=== PATIENT | female | born 2000 | race African-American/Black ===

== ENCOUNTER 2022-01-19 15:29 | Emergency (ER) | payer SELFPAY ==
[2022-01-19 15:55] VITALS: O2SAT 100
[2022-01-19] MEDS ORDERED: Zithromax 250 MG TABLET PO ONE (16:09)
[2022-01-19] MEDS ORDERED: Flagyl 500 MG PO ONE (16:10)
[2022-01-19] MEDS ORDERED: Rocephin 500 MG INJ IM ONE (16:11)
--- NOTE | 2022-01-19 16:11 | ERPHSYRPT ---
- History of Present Illness Time Seen by Provider: 01/19/22 16:02 Patient Subjective Stated Complaint: Pt c/o of small bump on palms and fingers of kayleen hands, pt also wishes to be tested for std's due to her boyfriend texting her today and stating that she needed to be tested, bumps on hands appeared last week, pt stated that she had athletes foot and had popped a blister on her foot and then later the bumps showed up on her hands but is unsure if it is related, the bumps are itchy Triage Nursing Assessment: Pt was brought to the ER by a family member, lorrie huang, denies pain, tiny bumps on hand are her skin color and are hard to see but can be felt, denies any urination problems, doesn't appear to be in any distress Physician History: 21 years old presented in the ER for STD check as patient ex-boyfriend called/texted her to be checked for it. She denies any vaginal discharge, cramping, fever or chills. Does have unprotected sexual intercourse almost 2 weeks ago. Denies any history of STDs in the past. Denies any increased urinary frequency urgency or hesitancy. She does have a athlete's foot on the left fourth lateral webspace which she is using clotrimazole for the last 3 days and is improving and she cleaned it with fingers and have some bumps on thereto. Mild itching. Allergies/Adverse Reactions: No Known Drug Allergies Allergy (Verified 01/19/22 15:55) Travel Risk - International Travel Have you traveled outside of the country in past 3 weeks: No - Coronavirus Screening Are you exhibiting any of the following symptoms?: No Close contact with a COVID-19 positive Pt in past 14-21 Days: No - Vaccine Status Have you recieved a Covid-19 vaccination: Yes [employer]: [employer] - Vaccination Dates Date of 2cond Vaccination (if applicable): 05/2021 - Review of Systems Constitutional: No Symptoms Eyes: No Symptoms Ears, Nose, & Throat: No Symptoms Respiratory: No Symptoms Cardiac: No Symptoms Abdominal/Gastrointestinal: No Symptoms Genitourinary Symptoms: No Symptoms Musculoskeletal: No Symptoms Skin: Skin Lesions Neurological: No Symptoms Psychological: No Symptoms Endocrine: No Symptoms - Past Medical History Pertinent Past Medical History: No - Past Surgical History Past Surgical History: Yes Gastrointestinal: Appendectomy Other Surgical History: rt open compound fracture of leg--3 surgeries, 2 surgeries for appendix because they left something in there - Social History Smoking Status: Never smoker Exposure to second hand smoke: No Drug Use: none Patient Lives Alone: Yes - Female History Hx Last Menstrual Period: 01/12/2022 Hx Now: No - Nursing Vital Signs Nursing Vital Signs: Initial Vital Signs Temperature 96.8 F 01/19/22 15:37 Pulse Rate 96 H 01/19/22 15:37 Blood Pressure 128/80 01/19/22 15:37 O2 Sat by Pulse Oximetry 100 01/19/22 15:37 Pain Scale Pain Intensity 0 - Physical Exam General Appearance: no apparent distress, alert Eye Exam: PERRL/EOMI Neck Exam: normal inspection, full range of motion Respiratory Exam: normal breath sounds, lungs clear Cardiovascular Exam: regular rate/rhythm, normal heart sounds Gastrointestinal/Abdomen Exam: soft, normal bowel sounds, No tenderness Extremity Exam: other (Erythema left fourth foot webspace. With bumps around/vesicles. Also have few bumps on the palmar aspect of hand. No erythema on the hand.) Neurologic Exam: alert, oriented x 3, cooperative Skin Exam: normal color SpO2 Interpretation: normal SpO2: 100 O2 Delivery: Room Air Ordered Tests: Active Orders 24 hr Category Date Time Status CULTURE,URINE Stat Lab 01/19/22 16:52 Received HCG,QUALITATIVE URINE Stat Lab 01/19/22 16:52 Completed UA W/RFX CULTURE Stat Lab 01/19/22 16:52 Results Wet Prep Stat Lab 01/19/22 16:52 Results Medication Summary Discontinued Medications Generic Name Dose Route Start Last Admin Trade Name Jaylon PRN Reason Stop Dose Admin Azithromycin 1,000 mg 01/19/22 16:09 01/19/22 16:29 Azithromycin 250 Mg Tablet PO 01/19/22 16:10 1,000 mg STAT ONE Administration Azithromycin Confirm 01/19/22 16:25 Azithromycin 250 Mg Tablet Administered 01/19/22 16:26 Dose 1,000 mg .ROUTE .STK-MED ONE Ceftriaxone Sodium 500 mg 01/19/22 16:11 01/19/22 16:31 Ceftriaxone Sodium 500 Mg Vial IM 01/19/22 16:12 500 mg STAT ONE Administration Ceftriaxone Sodium Confirm 01/19/22 16:26 Ceftriaxone Sodium 500 Mg Vial Administered 01/19/22 16:27 Dose 500 mg .ROUTE .STK-MED ONE Lidocaine HCl Confirm 01/19/22 16:26 Lidocaine Hcl 1% 20 Ml Mdv 20 Ml Ml Administered 01/19/22 16:27 Dose 1 ml .ROUTE .STK-MED ONE Metronidazole 2,000 mg 01/19/22 16:10 01/19/22 16:29 Metronidazole 500 Mg Tablet PO 01/19/22 16:11 2,000 mg STAT ONE Administration Metronidazole Confirm 01/19/22 16:26 Metronidazole 500 Mg Tablet Administered 01/19/22 16:27 Dose 2,000 mg .ROUTE .STK-MED ONE Lab/Rad Data: Laboratory Results 01/19/22 01/19/22 Range/Units 16:52 16:52 Urinalys Dipstick Clnc MAIN LAB Urine Color YELLOW (YELLOW) Urine Appearance CLEAR (CLEAR) Urine pH 6.0 (5-6) Ur Specific [place] 1.015 (1.005-1.025) POC Urine Protein Conf NEGATIVE (Negative) Urine Ketones NEGATIVE (NEGATIVE) Urine Nitrite NEGATIVE (NEGATIVE) Urine Bilirubin NEGATIVE (NEGATIVE) Urine Urobilinogen 0.2 (0-1) mg/dL Urine Leukocytes SMALL (NEGATIVE) Urine WBC (Auto) 6-10 (0-5) /HPF Urine RBC (Auto) 0-2 (0-2) /HPF U Epithel Cells (Auto) RARE (FEW) /HPF Urine Bacteria (Auto) RARE (NEGATIVE) /HPF Urine RBC NEGATIVE (0-5) Calixto/ul Urine Mucus (Auto) SLIGHT (NEGATIVE) /HPF Ur Culture Indicated? YES Urine Glucose NEGATIVE (NEGATIVE) mg/dL Urine HCG, Qual NEGATIVE (Negative) WBC (Wet Prep) Pending RBC (Wet Prep) Pending Epi Cells (Wet Prep) Pending Bacteria (Wet Prep) Pending Clue Cells (Wet Prep) Pending Trichomonas (Wet Prep) Pending Budding Yeast (Wet Prp) Pending - Progress Progress: unchanged Air Movement: good Progress Note: 01/19/22 17:05 She is given STD prophylaxis with Rocephin/Zithromax/metronidazole. Recommended continue with antifungal medication and outpatient follow-up. Does have UTI and started on Keflex. Blood Culture(s) Obtained: No Antibiotics given: Yes, No Counseled pt/family regarding: lab results, diagnosis, need for follow-up - Departure Departure Disposition: Home Clinical Impression: Exposure to STD, Athlete's foot on left, Acute UTI Condition: Stable Critical Care Time: No Referrals: DOCTOR,NO FAMILY [Primary Care Provider] - Follow up/PCP as directed ARBEN IYER MD [ACTIVE STAFF] - Follow up/PCP as directed (in 2 days for re evaluation ) Instructions: STD Prevention Additional Instructions: Follow-up with primary care/health department for reevaluation and further testing. Return to ER if having vaginal discharge, pelvic pain/cramping/fever chills etc. continue with topical anti-fungal medication Prescriptions: Cephalexin Mh 500 mg [Keflex 500 mg] 500 mg PO TID #21 cap
[2022-01-19] MEDS ORDERED: Zithromax 250 MG TABLET ONE (16:25)
[2022-01-19] MEDS ORDERED: Rocephin 500 MG INJ ONE (16:26)
[2022-01-19] MEDS ORDERED: Flagyl 500 MG ONE (16:26)
[2022-01-19] MEDS ORDERED: XYLOCAINE 1% HCL 20 ML MDV ONE (16:26)
[2022-01-19 16:58] LABS: Appearance CLEAR (CLEAR); Bilirubin NEGATIVE (NEGATIVE); Dipstick done @ ? MAIN LAB; Glucose NEGATIVE (NEGATIVE); Ketones NEGATIVE (NEGATIVE); Nitrite NEGATIVE (NEGATIVE); Protein,Urine Dip NEGATIVE (Negative); RBC NEGATIVE Ery/ul (0-5); Specific Gravity 1.015 (1.005-1.025); Urobilinogen 0.2 mg/dL (0-1)
[2022-01-19 17:02] LABS: Bacteria RARE /HPF (NEGATIVE); Epithelial Cells RARE /HPF (FEW); Mucus SLIGHT /HPF (NEGATIVE); RBC 0-2 /HPF (0-2)
[2022-01-19 17:03] LABS: Urine Cultured Indicated? YES
[2022-01-19 17:16] VITALS: BP 132/68; PULSE 86
[2022-01-19 18:43] LABS: CHLAMYDIA DNA DETECTED (NEGATIVE); GC DNA Probe DETECTED (NEGATIVE)
== END 2022-01-19 17:27 | disposition home or self-care (01) ==
LOC: ED 15:29
DX: N39.0 Urinary tract infection, site not specified (principal); B35.3 Tinea pedis; Z20.2 Contact with and (suspected) exposure to infections with a predominantly sexual mode of transmission
CPT/HCPCS: 81015; 84703; 87077; 87086; 87186; 87491; 87591; 96372; 99284; J0696; A9270-GY

== ENCOUNTER 2024-01-24 07:57 | Emergency (ER) | payer BC ==
--- NOTE | 2024-01-24 08:03 | ERPHSYRPT ---
- History of Present Illness Time Seen by Provider: 01/24/24 08:03 Historian: patient Exam Limitations: no limitations Physician History: This is an overweight 23-year-old -[place] female who has had an appendectomy past and presents to the emergency department with 2-day history of right lower quadrant abdominal pain. It is localized. It is worse this morning and she describes it as a sharp, achiness. She states she is about ready to start her menstrual period. Patient states she is sexually active. Patient has no known drug allergies and she takes no medications chronically. She denies chest pain and she denies shortness of breath. She does not have a primary care provider. She does not have nausea or vomiting or diarrhea symptoms. Timing/Duration: day(s) (2), worse Activities at Onset: none (This morning) Quality: aching, sharpness Abdominal Pain Onset Location: RLQ Pain Radiation: no radiation Severity of Pain-Max: moderate Severity of Pain-Current: moderate Modifying Factors: Improves With: nothing Associated Symptoms: denies symptoms Previous symptoms: no prior history, no recent treatment Allergies/Adverse Reactions: walnut Allergy (Mild, Verified 01/24/24 08:15) Home Medications: No Reportable Medications [No Reported Medications] 01/24/24 [History] Travel Risk - International Travel Have you traveled outside of the country in past 3 weeks: No - Emerging Infectious Disease Are you exhibiting symptoms associated with any current EIDs: No - Review of Systems Constitutional: No Symptoms Eyes: No Symptoms Ears, Nose, & Throat: No Symptoms Respiratory: No Symptoms Cardiac: No Symptoms Abdominal/Gastrointestinal: Abdominal Pain (Right lower quadrant) Genitourinary Symptoms: No Symptoms Musculoskeletal: No Symptoms Skin: No Symptoms Neurological: No Symptoms Psychological: No Symptoms Endocrine: No Symptoms Hematologic/Lymphatic: No Symptoms Immunological/Allergic: No Symptoms All Other Systems: Reviewed and Negative - Past Medical History Pertinent Past Medical History: No - Past Surgical History Past Surgical History: Yes Gastrointestinal: Appendectomy Other Surgical History: rt open compound fracture of leg--3 surgeries, 2 surgeries for appendix because they left something in there - Social History Smoking Status: Never smoker Exposure to second hand smoke: No Drug Use: none Patient Lives Alone: Yes - Nursing Vital Signs Nursing Vital Signs: Initial Vital Signs Temperature 97.3 F 01/24/24 08:06 Pulse Rate 103 H 01/24/24 08:06 Respiratory Rate 18 01/24/24 08:06 Blood Pressure 162/87 01/24/24 08:06 O2 Sat by Pulse Oximetry 98 01/24/24 08:06 Pain Scale Pain Intensity 2 - Physical Exam General Appearance: no apparent distress, alert, other (Overweight) Eye Exam: PERRL/EOMI, eyes nml inspection Ears, Nose, Throat Exam: normal ENT inspection, moist mucous membranes Neck Exam: normal inspection, non-tender, supple, full range of motion Respiratory Exam: normal breath sounds, lungs clear, airway intact, No chest tenderness, No respiratory distress Cardiovascular Exam: regular rate/rhythm, normal heart sounds, normal peripheral pulses Gastrointestinal/Abdomen Exam: soft, normal bowel sounds, tenderness (Right lower quadrant), guarding (Right lower quadrant to palpation), No rebound Pelvic Exam: not done Rectal Exam: not done Extremity Exam: normal inspection, normal range of motion, pelvis stable Neurologic Exam: alert, oriented x 3, cooperative, spa consultant II-XII nml as tested, normal mood/affect, nml cerebellar function, nml station & gait, sensation nml Skin Exam: normal color, warm, dry Lymphatic Exam: No adenopathy SpO2 Interpretation: normal O2 Delivery: Room Air - Course Nursing assessment & vital signs reviewed: Yes Ordered Tests: Active Orders 24 hr Category Date Time Status IV Insertion STAT Care 01/24/24 08:22 Active ABDOMEN AND PELVIS W/0 CONTRAS [CT] Stat Exams 01/24/24 08:22 Completed AMYLASE Stat Lab 01/24/24 08:36 Completed CBC W DIFF Stat Lab 01/24/24 08:36 Completed CMP Stat Lab 01/24/24 08:36 Completed HCG QUALITATIVE, SERUM Stat Lab 01/24/24 08:36 Completed LIPASE Stat Lab 01/24/24 08:36 Completed UA W/RFX UR CULTURE Stat Lab 01/24/24 08:43 Completed Medication Summary Discontinued Medications Generic Name Dose Route Start Last Admin Trade Name Freq PRN Reason Stop Dose Admin Sodium Chloride 1,000 mls @ 999 mls/hr 01/24/24 08:22 01/24/24 09:31 Sodium Chloride 0.9% 1000 Ml IV 01/24/24 09:22 Not Given .Q1H1M STA Morphine Sulfate 4 mg 01/24/24 08:22 01/24/24 09:31 Morphine Sulfate 4 Mg/Ml Injection IV 01/24/24 08:23 Not Given STAT ONE Ondansetron HCl 4 mg 01/24/24 08:22 01/24/24 09:32 Ondansetron Hcl 4 Mg/2 Ml Vial IV 01/24/24 08:23 Not Given STAT ONE Lab/Rad Data: Laboratory Result Diagrams 01/24/24 08:36 01/24/24 08:36 Laboratory Results 01/24/24 01/24/24 01/24/24 Range/Units 08:43 08:36 08:36 WBC (4.0-10.5) x10^3/uL RBC (4.1-5.4) x10^6/uL Hgb (12.0-16.0) g/dL Hct (35-47) % MCV (78-100) fL MCH (26-32) pg MCHC (32-36) g/dL RDW (11.5-14.0) % Plt Count (150-450) x10^3/uL MPV (7.5-11.0) fL Gran % (36.0-66.0) % Immature Gran % (Auto) (0.00-0.4) % Nucleat RBC Rel Count (0.00-0.1) % Eos # (Auto) (0-0.5) x10^3/uL Immature Gran # (Auto) (0.00-0.03) x10^3u/L Absolute Lymphs (auto) (1.0-4.6) x10^3/uL Absolute Monos (auto) (0.0-1.3) x10^3/uL Absolute Nucleated RBC (0.00-0.01) x10^3u/L Lymphocytes % (24.0-44.0) % Monocytes % (0.0-12.0) % Eosinophils % (0.00-5.0) % Basophils % (0.0-0.4) % Absolute Granulocytes (1.4-6.9) x10^3/uL Basophils # (0-0.4) x10^3/uL Sodium 140 (135-145) mmol/L Potassium 3.7 (3.5-5.1) mmol/L Chloride 107 (98-107) mmol/L Carbon Dioxide 23 (22-30) mmol/L Anion Gap 13.7 (5-15) MEQ/L BUN 11 (7-17) mg/dL Creatinine 0.75 (0.52-1.04) mg/dL Estimated GFR 115.4 ML/MIN Glucose 101 (74-106) mg/dL Calcium 9.0 (8.4-10.2) mg/dL Total Bilirubin 0.30 (0.2-1.3) mg/dL AST 24 (14-36) U/L ALT 19 (0-35) U/L Alkaline Phosphatase 77 (38-126) U/L Serum Total Protein 8.2 (6.3-8.2) g/dL Albumin 4.5 (3.5-5.0) g/dL Amylase 92 (30-110) U/L Lipase 201 (23-300) U/L Serum HCG, Qual NEGATIVE (NEGATIVE) Urine Color Yellow (Yellow) Urine Appearance Clear (Clear) Urine pH 7.0 (4.6-8.0) Ur Specific [place] 1.015 (1.005-1.030) Urine Protein Negative (Negative) Urine Glucose (UA) Negative (Negative) mg/dL Urine Ketones Negative (Negative) Urine Blood Negative (Negative) Urine Nitrite Negative (Negative) Urine Bilirubin Negative (Negative) Urine Urobilinogen 0.2 (0.2) mg/dL Ur Leukocyte Esterase Negative (Negative) U Hyaline Cast (Auto) NONE SEEN (0-2) /LPF Urine Microscopic RBC 0-2 (0-5) /HPF Urine Microscopic WBC 0-2 (0-5) /HPF Ur Epithelial Cells None Seen (None Seen) /HPF Urine Bacteria None Seen (None Seen) /HPF Urine Culture Reflexed NO (NO) 01/24/24 Range/Units 08:36 WBC 7.9 (4.0-10.5) x10^3/uL RBC 4.21 (4.1-5.4) x10^6/uL Hgb 10.9 L (12.0-16.0) g/dL Hct 34.4 L (35-47) % MCV 81.7 (78-100) fL MCH 25.9 L (26-32) pg MCHC 31.7 L (32-36) g/dL RDW 14.4 H (11.5-14.0) % Plt Count 376 (150-450) x10^3/uL MPV 9.3 (7.5-11.0) fL Gran % 57.8 (36.0-66.0) % Immature Gran % (Auto) 0.3 (0.00-0.4) % Nucleat RBC Rel Count 0.0 (0.00-0.1) % Eos # (Auto) 0.15 (0-0.5) x10^3/uL Immature Gran # (Auto) 0.02 (0.00-0.03) x10^3u/L Absolute Lymphs (auto) 2.55 (1.0-4.6) x10^3/uL Absolute Monos (auto) 0.53 (0.0-1.3) x10^3/uL Absolute Nucleated RBC 0.00 (0.00-0.01) x10^3u/L Lymphocytes % 32.4 (24.0-44.0) % Monocytes % 6.7 (0.0-12.0) % Eosinophils % 1.9 (0.00-5.0) % Basophils % 0.9 (0.0-0.4) % Absolute Granulocytes 4.55 (1.4-6.9) x10^3/uL Basophils # 0.07 (0-0.4) x10^3/uL Sodium (135-145) mmol/L Potassium (3.5-5.1) mmol/L Chloride (98-107) mmol/L Carbon Dioxide (22-30) mmol/L Anion Gap (5-15) MEQ/L BUN (7-17) mg/dL Creatinine (0.52-1.04) mg/dL Estimated GFR ML/MIN Glucose (74-106) mg/dL Calcium (8.4-10.2) mg/dL Total Bilirubin (0.2-1.3) mg/dL AST (14-36) U/L ALT (0-35) U/L Alkaline Phosphatase (38-126) U/L Serum Total Protein (6.3-8.2) g/dL Albumin (3.5-5.0) g/dL Amylase (30-110) U/L Lipase (23-300) U/L Serum HCG, Qual (NEGATIVE) Urine Color (Yellow) Urine Appearance (Clear) Urine pH (4.6-8.0) Ur Specific [place] (1.005-1.030) Urine Protein (Negative) Urine Glucose (UA) (Negative) mg/dL Urine Ketones (Negative) Urine Blood (Negative) Urine Nitrite (Negative) Urine Bilirubin (Negative) Urine Urobilinogen (0.2) mg/dL Ur Leukocyte Esterase (Negative) U Hyaline Cast (Auto) (0-2) /LPF Urine Microscopic RBC (0-5) /HPF Urine Microscopic WBC (0-5) /HPF Ur Epithelial Cells (None Seen) /HPF Urine Bacteria (None Seen) /HPF Urine Culture Reflexed (NO) - Progress Progress: improved, pain not gone completely Progress Note: 01/24/24 08:33 My medical decision making and the assignment of moderate complexity to this patient's medical issue today is based on review of the patient's past medical history, review of the patient's medication list, review the patient drug allergy list, history present illness and physical findings on examination. The workup in this patient includes placement of intravenous line, infusion of normal saline solution, infusion of 4 mg of morphine intravenously, infusion of 4 mg intravenously of Zofran, CBC, CMP, amylase, lipase, urinalysis, CT scan of the abdomen pelvis without contrast. Differential diagnosis includes kidney infection, ureterolithiasis, abnormality in the ovary/tube 01/24/24 10:47 I interpreted the patient's laboratory data results. There is no evidence of any acute or emergent medical issue based on the laboratory data results. CT scan of the abdomen pelvis without contrast was interpreted by the radiologi st and I reviewed the impression. The impression states 2 nonobstructing stones right kidney. There is minimal free fluid within Lukas pouch likely secondary to ovarian follicular rupture Counseled pt/family regarding: lab results, diagnosis, need for follow-up, rad results Medical Desision Making - Diagnostic Testing Diagnostic test were ordered, analyzed, and reviewed by me: Yes Radiological Interpretation: Reviewed by me, Teleradiologist Report - Risk of complications Minimal Risk: Minimal risk of morbidity - Departure Departure Disposition: Home Clinical Impression: Abdominal pain, Follicular cyst of right ovary Condition: Stable Critical Care Time: No Referrals: DOCTOR,NO FAMILY [Primary Care Provider] - Follow up/PCP as directed Additional Instructions: Take Tylenol 650 mg orally every 4 hours while awake. In addition, take ibuprofen 600 mg, with food, 3 times a day for the next 5 days. Drink plenty of fluids. Call your primary care provider on 01/26/2024, to make arrangements for follow-up appointment to be seen in the next 3 to 5 days.
[2024-01-24 08:45] LABS: Absolute Neutrophil Ct (ANC) 4.55 x10^3/uL (1.4-6.9); BASOPHIL % 0.9 % (0.0-0.4); Basophil (Absolute #) 0.07 x10^3/uL (0-0.4); Eosinophil % 1.9 % (0.00-5.0); Eosinophil (Absolute #) 0.15 x10^3/uL (0-0.5); Hematocrit 34.4 % (35-47); Hemoglobin 10.9 g/dL (12.0-16.0); IMMATURE GRAN # 0.02 x10^3u/L (0.00-0.03); IMMATURE GRAN % 0.3 % (0.00-0.4); Lymphocyte (Absolute #) 2.55 x10^3/uL (1.0-4.6); Lymphocytes % 32.4 % (24.0-44.0); Mean Cell Volume 81.7 fL (78-100); Mean Corpuscular Hemoglobin 25.9 pg (26-32); Mean Corpuscular Hgb Concent. 31.7 g/dL (32-36); Mean Platelet Volume 9.3 fL (7.5-11.0); Monocyte (Absolute #) 0.53 x10^3/uL (0.0-1.3); Monocytes % 6.7 % (0.0-12.0); Neutrophil % 57.8 % (36.0-66.0); Platelet Count 376 x10^3/uL (150-450); Red Blood Count 4.21 x10^6/uL (4.1-5.4); Red Cell Distribution Width 14.4 % (11.5-14.0); White Blood Count 7.9 x10^3/uL (4.0-10.5)
[2024-01-24 08:52] LABS: Appearance Clear (Clear); Bacteria None Seen /HPF (None Seen); Bilirubin Negative (Negative); Blood Negative (Negative); Epithelial Cells None Seen /HPF (None Seen); Glucose, Urine Negative (Negative); Hyaline Casts NONE SEEN /LPF (0-2); Ketones Negative (Negative); Leukocyte Esterase Negative (Negative); Nitrite Negative (Negative); Protein,Urine Dip Negative (Negative); RBC 0-2 /HPF (0-5); Specific Gravity 1.015 (1.005-1.030); Urobilinogen 0.2 mg/dL (0.2); WBC 0-2 /HPF (0-5)
[2024-01-24 08:56] LABS: ADD URINE CULTURE? NO (NO)
[2024-01-24 08:56] LABS: HCG SERUM TEST NEGATIVE (NEGATIVE)
[2024-01-24 08:57] LABS: ALBUMIN 4.5 g/dL (3.5-5.0); ANION GAP 13.7 MEQ/L (5-15); BILIRUBIN,TOTAL 0.3 mg/dL (0.2-1.3); Creatinine 1 0.75 mg/dL (0.52-1.04); EST GLOMERULAR FILTRATION RATE 115.4 ML/MIN; Potassium 3.7 mmol/L (3.5-5.1); Total Protein 8.2 g/dL (6.3-8.2)
[2024-01-24] MEDS: MORPHINE SULFATE 4 MG INJ IV ONE (09:31)
[2024-01-24] MEDS: Sodium Chloride 0.9% 1000 ML 1,000 ML IV STA (09:31)
[2024-01-24] MEDS: Zofran 4 MG/2 ML VIAL IV ONE (09:32)
[2024-01-24 10:01] VITALS: RESP 20; O2SAT 98
--- NOTE | 2024-01-24 10:42 | XRAY ---
CLINICAL HISTORY: RLQ ABD pain COMPARISON: None TECHNIQUE: CT scan of the abdomen was performed without IV contrast, Coronal and sagittal reconstructive images were also obtained. One of the following dose reduction techniques were utilized for this exam: Automated exposure control, adjustment of the mA and/or kV according to patient size, use of iterative reconstruction FINDINGS: Lung bases are unremarkable. The liver is normal in size without focal parenchymal abnormality. The intrahepatic biliary radicals and the bile ducts are normal. The gallbladder is normal. No pericholecystic fluid collection or radio dense calculi in the gall bladder. The spleen, pancreas, adrenal glands are unremarkable. There are 2 nonobstructing stones within the right kidney interpolar segment and lower pole measuring approximately 3 mm. Otherwise, the kidneys are unremarkable. They are normal in size and shape. No calculi or hydronephrosis is seen. The appendix was removed. The ascending colon, the transverse colon, the descending colon, visualized small bowel loops are unremarkable. There is no evidence of significant enlargement of the mesenteric or retroperitoneal lymph nodes. The osseous structures in the lower rib cage and lumbar spine show no abnormality. Pelvis: The urinary bladder is unremarkable. The rectosigmoid colon is unremarkable. A few small follicle cysts are seen within the right ovary. The uterus and ovaries are grossly unremarkable. There is minimal free fluid within the Lukas pouch. The pelvic vasculature is unremarkable. No evidence of pelvic lymphadenopathy. IMPRESSION: Two nonobstructing stones of the right kidney. Minimal free fluid within the Lukas pouch, likely secondary to ovarian follicle rupture. Electronically Signed by: Dickson Farmer MD. (01/24/2024 10:37:46 EDT)
[2024-01-24] MEDS ORDERED: MOTRIN 600 MG ONE (10:57)
[2024-01-24] MEDS ORDERED: NORCO 5/325 MG ONE (10:57)
[2024-01-24] MEDS: MOTRIN 600 MG PO ONE (10:57)
[2024-01-24] MEDS: NORCO 5/325 MG PO ONE (10:58)
[2024-01-24 11:03] VITALS: BP 148/78; PULSE 88; TEMP 97.8
== END 2024-01-24 11:05 | disposition home or self-care (01) ==
LOC: ED 07:57
DX: N83.01 Follicular cyst of right ovary (principal); R10.31 Right lower quadrant pain
CPT/HCPCS: 36415; 74176; 80053; 81001; 82150; 83690; 84703; 85025; 99284; A9270-GY